=== PATIENT | female | born 1980 | race American Indian/Alaskan Native ===

== ENCOUNTER 2021-08-22 09:58 | Outpatient (CLI) | payer BC ==
--- NOTE | 2021-08-22 16:59 | Mammography Report ---
BILATERAL DIGITAL DIAGNOSTIC MAMMOGRAM WITH CAD CONVENTIONAL, 08/22/2021 BILATERAL LIMITED BREAST ULTRASOUND CLINICAL INFORMATION / INDICATION: The patient reports intermittent pain in the medial right breast a nd upper outer left breast. TECHNIQUE: Digital bilateral mammographic imaging was performed. Spot compression views were obtained . Limited ultrasound was performed. This examination was interpreted with the benefit of Computer-Aid ed Detection (CAD) analysis. COMPARISON: None. Patient's prior mammograms were performed greater than 10 years ago and are not sarah ilable for comparison. FINDINGS: Breast Density: The breasts are extremely dense, which lowers the sensitivity of mammography. MAMMOGRAPHIC FINDINGS: Right breast: There is a circumscribed oval mass at the 2:00 position posterior depth measuring 3.3 c m. Additionally, there is an oval 7 mm asymmetry with indistinct margins in the far superior right br east seen on the MLO view only. Left breast: No dominant mass, suspicious calcifications, or architectural distortion in the left terrance ast. ULTRASOUND FINDINGS: Targeted ultrasound evaluation was performed of the area of interest. Right breast: Sonographic evaluation of the medial right breast in the patient's area of pain demonst rates an oval wider than tall hypoechoic solid mass measuring 3.1 x 1.0 cm. There is minimal internal vascularity. This corresponds to the density seen on the mammogram. Sonographic evaluation of the re mainder of the right breast demonstrates minimal scattered small cysts and fibrocystic tissue. There is no suspicious solid mass or shadowing. Left breast: Sonographic evaluation of the upper outer left breast in the patient's area of pain demo nstrates a few scattered small cysts and fibrocystic change. There is no suspicious solid mass or sha dowing. The 7 mm asymmetry in the far superior right breast seen on mammography was identified as a subtle fi nding upon review of the patient's images after the patient had left the department. Therefore, the p atient will need to return for additional evaluation of this finding. IMPRESSION: 1. Indeterminate focal asymmetry in the superior right breast as described above. This will require a dditional evaluation with spot compression views, exaggerated CC view and right breast ultrasound. To mosynthesis evaluation of this finding would be desirable due to the patient's very dense breast tiss ue. 2. No focal mammographic or sonographic abnormality to account for the patient's bilateral intermitte nt breast pain. 3. Circumscribed oval 3.1 cm mass in the right breast at the 2:00 position which has a benign appeara nce and most likely represents a fibroadenoma. A 6 month follow-up evaluation is recommended. Follow up recommendation: Special View: Spot BI-RADS Category 0: INCOMPLETE. Needs additional imaging evaluation and/or prior mammograms for gris goodwin. A "normal" or negative report should not discourage follow up or biopsy of a clinically significant f inding. A written summary of these findings will be mailed to the patient. The patient will be entered into a mammography reporting system which will generate a reminder letter for the patient's next appointmen t at the appropriate interval. According to the [employer], yearly mammograms are recommended starting at age 40 and continuing as long as a woman is in good health. Breast MRI is recommended for women with an chon roximately 20-25% or greater lifetime risk of breast cancer, including women with a strong family his tory of breast or ovarian cancer and women who have been treated for Hodgkin's disease. Signer Name: Kat Remy MD Signed: 08/22/2021 4:54 PM Workstation Name: [id number]
== END 2021-08-22 09:59 | disposition home or self-care (01) ==
LOC: MAMMO 09:58
PROVIDERS: ATTEND Obstetrics & Gynecology
DX: N63.12 Unspecified lump in the right breast, upper inner quadrant (principal)
CPT/HCPCS: 77066